=== PATIENT | female | born 1995 | race Caucasian/White ===

== ENCOUNTER 2019-03-11 19:12 | Emergency (ER) | payer BC, MEDICARE ==
[~2019-03-11] VITALS: Ht 157.5 cm; Wt 88.0 kg
[2019-03-11 19:16] VITALS: BP_SYST 145
--- NOTE | 2019-03-11 20:17 | NUR ---
Patient left without being seen. No further treatment provided. ER MD aware
--- NOTE | 2019-03-11 20:17 | NUR ---
Called pt, no answer
== END 2019-03-11 20:17 | disposition left against medical advice (07) ==
LOC: SED 19:12
DX: R05 Cough (principal); Z53.21 Procedure and treatment not carried out due to patient leaving prior to being seen by health care provider

== ENCOUNTER 2019-03-12 09:03 | Emergency (ER) | payer BC ==
[~2019-03-12] VITALS: Ht 157.5 cm; Wt 86.2 kg
[2019-03-12 09:03] VITALS: BP_SYST 138
--- NOTE | 2019-03-12 09:03 | NUR ---
Patient triaged and placed in waiting room. VSS and patient appears in no acute distress at this time. Accompanied by SELF, awaiting available bed, and MD notified of need for MSE.
--- NOTE | 2019-03-12 09:38 | NUR ---
BROUGHT BACK TO BED #3 AND REPORT GIVEN TO LIZZY
--- NOTE | 2019-03-12 09:45 | NUR ---
Patient presented to ER C/O cough. Patient A&Ox4, ambulatory to ER, cough, nasal congestion, skin pink and warm, afebrile, pain 08/12. Patient states cough & congestion x3 days, pain in throat & chest from cough, difficulty sleeping since Sunday.
--- NOTE | 2019-03-12 10:20 | NUR ---
DR FLORES AT BEDSIDE FOR EVALUATION
[2019-03-12] MEDS ORDERED: IPRATROPIUM/ALBUTEROL SULFATE 3 ML AMPUL.NEB (DUONEB) INH ONE (10:30)
[2019-03-12 11:38] VITALS: BP_SYST 127
--- NOTE | 2019-03-12 11:39 | NUR ---
Patient given written and verbal discharge instructions and verbalizes understanding. ER MD discussed with patient the results and treatment provided. Patient in stable condition. ID arm band removed. Rx of ALBUTEROL INHALER, PROMETHAZINE given. Patient educated on pain management and to follow up with PMD. Pain Scale 0/10. Opportunity for questions provided and answered. Medication side effect fact sheet provided.
== END 2019-03-12 11:39 | disposition home or self-care (01) ==
LOC: SED 09:03
DX: J06.9 Acute upper respiratory infection, unspecified (principal); R03.0 Elevated blood-pressure reading, without diagnosis of hypertension
CPT/HCPCS: 94640; 99283; J7620

== ENCOUNTER 2019-09-09 19:57 | Emergency (ER) | payer BC ==
[~2019-09-09] VITALS: Ht 157.5 cm; Wt 95.3 kg
[2019-09-09 19:57] VITALS: BP_SYST 131
== END 2019-09-09 21:33 | disposition left against medical advice (07) ==
LOC: SED 19:57
DX: R00.2 Palpitations (principal); Z53.21 Procedure and treatment not carried out due to patient leaving prior to being seen by health care provider

== ENCOUNTER 2023-08-31 16:04 | Emergency (ER) | payer BC, MEDICAID ==
[~2023-08-31] VITALS: Ht 157.5 cm; Wt 95.3 kg
[2023-08-31 16:09] VITALS: BP_SYST 119; PULSE 113; RESP 18; TEMP 97.3; O2SAT 97
[2023-08-31] MEDS: NACL 0.9% 1,000 ML IV ONE (17:00)
[2023-08-31] MEDS: LORazepam 2 MG/ML VIAL IVP ONE (17:10)
[2023-08-31 17:18] LABS: BASOPHILS # (AUTO) 0.1 K/uL (0.0-0.2); BASOPHILS % (AUTO) 0.7 % (0.0-2.0); EOSINOPHILS # (AUTO) 0.1 K/uL (0.0-0.4); EOSINOPHILS % (AUTO) 0.6 % (0.0-4.0); HEMATOCRIT 40.4 % (36-48); LYMPHOCYTES # (AUTO) 2.3 K/uL (1.0-5.5); LYMPHOCYTES % (AUTO) 20.2 % (20.5-51.5); MEAN CORPUSCULAR HEMOGLOBIN 30 pg (27-31); MEAN CORPUSCULAR HGB CONC 35 % (32-36); MEAN CORPUSCULAR VOLUME 85 fL (79.0-98.0); MONOCYTES # (AUTO) 0.5 K/uL (0.0-1.0); MONOCYTES % (AUTO) 4.7 % (1.7-9.3); NEUTROPHILS # (AUTO) 8.3 K/uL (1.8-7.7); NEUTROPHILS % (AUTO) 73.8 % (40.0-70.0); PLATELET COUNT (AUTO) 320 K/uL (130-430); RED BLOOD CELL COUNT(AUTO) 4.74 MIL/uL (4.2-6.2); RED CELL DISTRIBUTION WIDTH 12.9 % (9.0-15.0); WHITE BLOOD COUNT (AUTO) 11.2 K/uL (4.8-10.8)
[2023-08-31 17:21] LABS: SERUM HCG (QUALITATIVE) NEGATIVE (NEGATIVE)
[2023-08-31 17:35] LABS: ANION GAP 11 (5-15); CALCIUM 9.4 mg/dL (8.4-11.0); CARBON DIOXIDE 25 mmol/L (23-29); CHLORIDE 104 mmol/L (98-107); CREATININE 0.76 mg/dL (0.55-1.30); GFR AFRICAN AMERICAN 119 mL/min (>90); GFR NON AFRICAN-AMERICAN 99 mL/min (>90); GLUCOSE 97 mg/dL (74-106); POTASSIUM 3.8 mmol/L (3.5-5.1); SODIUM SERUM 140 mmol/L (136-145); THYROID STIMULATING HORMONE 0.85 uIu/mL (0.36-3.74); UREA NITROGEN, BLOOD 13 mg/dL (8-21)
[2023-08-31 17:37] LABS: ALCOHOL, BLOOD < 3 mg/dL (<10)
[2023-08-31] MEDS: PROPRANOLOL HCL 10 MG TABLET (INDERAL) PO ONE (17:57)
[2023-08-31 18:13] LABS: BARBITURATE, URINE NEGATIVE (NEG <=200); BENZODIAZEPINE, URINE NEGATIVE (NEG <=150); CANNABINOID, URINE NEGATIVE (NEG <=50); COCAINE, URINE NEGATIVE (NEG <=150); METHAMPHETAMINES SCREEN,URINE NEGATIVE (NEG <=500); OPIATE, URINE NEGATIVE (NEG <=100); PHENCYCLIDINE SCREEN,URINE NEGATIVE (NEG <=25); UR TRICYCLIC ANTIDEPRESSANTS NEGATIVE (NEG <=300); URINE AMPHETAMINE NEGATIVE (NEG <=500); URINE METHADONE NEGATIVE (NEG <=200); URINE OXYCODONE SCREEN NEGATIVE (NEG <=100)
[2023-08-31] MEDS ORDERED: PROP10TA10 PO (20:02)
[2023-08-31 20:09] VITALS: BP_SYST 116; PULSE 76; RESP 14; TEMP 98; O2SAT 100
== END 2023-08-31 20:18 | disposition home or self-care (01) ==
LOC: SED 16:04
DX: R00.2 Palpitations (principal); R00.0 Tachycardia, unspecified; R42 Dizziness and giddiness; R51.9 Headache, unspecified; Z79.899 Other long term (current) drug therapy
CPT/HCPCS: 99285; 96360; 71045; 80307; 80048; 84703; 84443; 85025; 84484; 36415; 93005; G0482; J2060; J7030